=== PATIENT | female | born 1970 | race Caucasian/White ===

== ENCOUNTER → 2017-09-24 | Day surgery (SDC) | payer BC ==
--- NOTE | 2017-09-20 14:34 | TH ---
cc: Daniele Grewal MD 09/24/2017 PROCEDURE TO BE PERFORMED: Removal of bilateral tissue expanders with breast implants, SCX-560. HISTORY OF PRESENT ILLNESS: This is a 47-year-old female who underwent a bilateral mastectomy back on 07/02 due to the significant the patient underwent also latissimus dorsi myocutaneous flap on the right side with the previous radiation and the lack of the right lateral pole deficiency. She underwent tissue expanders, and she is ready to have those removed and replaced. PAST MEDICAL HISTORY: Otherwise unremarkable. ALLERGIES: LEVOFLOXACIN. MEDICATIONS: Gabapentin, tramadol and meloxicam. PHYSICAL EXAMINATION: PHYSICAL EXAM [] CONSTITUTIONAL: General appearance. The patient is a well-developed [] in no acute distress. Body habitus is within normal limits. There appear to be no deformities. Appears to have attention to grooming. HEENT: Eyes Conjunctivae and lids are within normal anatomical limits. The pupils are reactive to light and accommodation, size, and symmetry. There is no evidence of exudate, hemorrhage, or vessel change. Ears, mouth, nose, and throat The external inspection of the ears and nose fails to demonstrate any pathology, scars, lesions, or masses. Nasal mucosa, septum, and turbinates appear to be well hydrated as well as the lips and gums. No evidence of masses in the hypopharynx or submental area. RESPIRATORY: The patient shows no evidence of intercostal refractions. Otherwise, lungs are clear to auscultation without any abnormal sounds or rubs. CARDIOVASCULAR: The patient has a normal heart rate and rhythm. There is no evidence of noticed carotid bruits. Femoral pulses and pedal pulses in extremities are also within normal limits. GASTROINTESTINAL AND ABDOMEN: Soft with no evidence of masses or tenderness. Unable to palpate the liver or spleen. No evidence of hernia. MUSCULOSKELETAL: Appears to be reasonable range of motion on the head, neck, spine, ribs, pelvis, right upper extremity, left upper extremity, right lower extremity, and left lower extremity. The muscle strength and tone appears to be equal and within accepted limits. SKIN: There is no rashes, lesions, or ulcers on the trunk, back, and extremities. NEUROLOGICAL: Examination is grossly normal. PSYCHIATRIC: The patient appears to have good orientation of time, place, and person. Does not appear to have any mood effects of depression, anxiety, or agitation. BREASTS: Slight ptosis on the left breast when compared to the right side. Other than that, they are well expanded tissue expanders. PLAN: As above. MD ELIJAH Lala/CECILE , 12:24 PM , 02:33 PM
[~2017-09-24] MED LIST: ACETAMINOPHEN 1000 MG/100 ML 100 ML IV ONE; ACETAMINOPHEN/HYDROcodone 325 MG/5 MG TAB ONE; BACITRACIN IM FOR SOLN 50,000 UNIT VIAL ONE; BUPIVACAINE/EPINEPHRINE 0.25% 50 ML VIAL ONE; GENTAMICIN SULFATE 80 MG/2 ML VIAL ONE; KETOROLAC TROMETHAMINE 30 MG/ML (IVP) VIAL IV PUSH ONE; LACTATED RINGER'S 1000 ML INJ 1,000 ML ONE; LIDOCAINE 1%/EPINEPHrine 1:100,000 SOLN 30 ML VIAL ONE; MEPERIDINE HCL 25 MG/ML VIAL ONE; MIDAZOLAM HCL 2 MG/2 ML VIAL ONE; NS 100 ML (PAB BAG) 100 ML IV ONE; ONDANSETRON HCL 4 MG/2 ML VIAL IV PUSH ONE; PROPOFOL 200 MG/20 ML AMP IV ONE; SODIUM CHLORIDE 0.9% 20 ML VIAL ONE; VANCOMYCIN 500 MG VIAL ONE; ceFAZolin INJ 1,000 MG VIAL ONE
--- NOTE | 2017-09-24 12:40 | TN ---
cc: Daniele Grewal MD DATE OF SURGERY: 09/24/2017 PREOPERATIVE DIAGNOSES: 1. History of breast cancer status post placement of tissue expanders. 2. Ptosis of the left breast. POSTOPERATIVE DIAGNOSIS: 1. History of breast cancer status post placement of tissue expanders. 2. Ptosis of the left breast. PROCEDURES: Removal of tissue expanders, replacement for implants, SCX Natcb Inspira 560, serial number of the right breast implant device [id number], left [id number], both 560 cc. PROCEDURE: She was properly consented, marked, anesthetized. The skin was sterilized with Betadine solution, sterile draping applied. Breast block was applied, a total of 30 cc of 1% lidocaine with epinephrine. Attention was directed to the right breast where, through a previous incision of the latissimus dorsi myocutaneous flap scar edge of the skin from the chilkat skin, I separate the flap down to the capsule . The tissue railroad detective was deflated and removed. Irrigation was carried out with copious antibiotic solution. Lateral capsulorrhaphies were done and multiple 0 silk were needed laterally mostly and superomedial capsulotomies were done. Insertion of the implant was carried after isolating the skin including the nipple-areolar complex and the wounds closed in multiple layers of 2-0 Monocryl suture. Attention was directed to the left breast where the tissue railroad detective had eroded on the upper quadrant and I proceeded to reinforce that with approximately 6 x 10 sheet of AlloDerm. This was anchored utilizing the pledgets with Xeroform gauze and 2-0 nylon. With this I proceeded and performed the capsulorrhaphies where needed and superomedial capsulotomies. The implant was introduced and the wounds were closed with multiple 2-0 Monocryl sutures as previously described. I also performed a mastopexy on the left breast. As the patient was sat up, tailor tacking was utilized. The skin was marked. The NAC was set at 42 mm areolar diameter, 23 cm from the sternal notch and thereafter deepitheliazed the skin, performed pinwheel type of technique utilizing 0 PTFE suture, reinforced with 2-0 Quill. Prineo Dermabond was applied to all the incisions. Good viability of the tissue was noted at the end of the case. Overall the patient tolerated the procedure well. She was awakened and extubated in the operating room, transferred back to the post-anesthesia care unit in stable condition. No complications appreciated. The patient tolerated the procedure fairly well. MD ELIJAH Lala/BRENDEN , 11:50 AM , 12:39 PM [place]
== END | disposition home or self-care (01) ==
LOC: ESDC 08:35
PROVIDERS: ATTEND Plastic Surgery
DX: Z42.1 Encounter for breast reconstruction following mastectomy (principal); Z85.3 Personal history of malignant neoplasm of breast
CPT/HCPCS: 00400; 11970; C1789; J0131; J0690; J1580; J1885; J2175; J2250; J2405; J3010; J3370; J7120; Q4116